=== PATIENT | female | born 1980 | race Caucasian/White ===

== ENCOUNTER 2021-01-31 22:40 | Emergency (ER) | payer OTHER, SELFPAY ==
--- NOTE | ~2021-01-31 | XR_ITS ---
EXAMINATION: XR knee LT min 4V EXAM DATE: 01/31/2021 23:40 INDICATION: No known recent injury provided at this time. Pain of the left knee. TECHNIQUE: Left knee frontal, crosstable lateral, orthogonal oblique projections for interpretation. Comparison is made to prior examination from 01/15/2017. FINDINGS: No evidence osteochondral defect or joint body in the left knee joint. No sizable joint ef fusion. There is minimal tricompartmental primary osteoarthritis. There are no acute fractures or dis locations identified. There is no subcutaneous gas. The soft tissue is unremarkable. There are no radiopaque foreign bodies. IMPRESSION: Minimal left knee osteoarthritis. No acute findings. Reviewed, dictated and finalized at location G.
[2021-01-31 23:06] VITALS: BP 144/88; PULSE 97; RESP 20; TEMP 36.6; O2SAT 97
[2021-01-31 23:22] VITALS: BP 125/66; PULSE 82; RESP 17; TEMP 36.8; O2SAT 98
--- NOTE | 2021-02-01 00:11 | ED.LOWEXIN ---
HPI - Extremity Injury (Lower) General Chief Complaint: Extremity Injury, Lower Stated Complaint: left knee pain Time Seen by Provider: 01/31/21 23:28 Source: patient Mode of arrival: ambulatory Limitations: no limitations History of Present Illness HPI Narrative: 40-year-old female complaining of left knee pain. Patient states no injury she did fall onto the concrete a couple of weeks ago but did not have knee pain since then. Suddenly today while she was visiting she developed left knee pain and increased pain with flexion. No previous history of same. States she feels as if the knee is unstable although she is able to bear weight on the knee. This happened earlier today with increasing pain throughout the day. Tylenol without relief. No previous knee surgeries, no previous injury to this knee. No other injury. No LOC. Pain radiates from left anterior medial knee to the posterior popliteal region. No swelling, no erythema, no fever. Related Data Home Medications Medication Instructions Recorded Confirmed bupropion HCl [Wellbutrin XL] 300 mg PO QAM 05/04/19 05/20/19 escitalopram oxalate [Lexapro] 20 mg PO DAILY 05/04/19 05/20/19 lisinopril-hydrochlorothiazide 1 tablet PO DAILY 05/04/19 05/20/19 omeprazole 20 mg PO DAILY 05/20/19 05/20/19 ropinirole 0.5 mg PO BID 05/20/19 05/20/19 Allergies Allergy/AdvReac Type Severity Reaction Status Date / Time Sulfa (Sulfonamide Allergy Unknown Hives Verified 01/31/21 23:30 Antibiotics) Review of Systems Review of Systems: CONSTITUTIONAL: no fever, no weight loss, no confusion EYES: no vision changes, no eye pain ENT: no rhinorrhea, no sore throat, no difficulty swallowing CARDIOVASCULAR: no chest pain, no leg edema, no palpitations RESPIRATORY: no cough, no shortness of breath, no hemoptysis GASTROINTESTINAL: no abdominal pain, no nausea, no vomiting, no diarrhea GENITOURINARY: no flank pain, no dysuria, no hematuria SKIN: no rash, no jaundice MUSCULOSKELETAL: no back pain, no trauma, L knee painand decreased flexion NEUROLOGIC: No headache, no dizziness, no focal weakness PSYCHIATRIC: No hallucinations, no suicidal ideation PMFSH Past Medical History Medical History Anxiety Depression Fibroid Hypertension Surgical History Surgical History History of tubal ligation Family History Family History Other Diabetes mellitus Family history of mental disorder Hypertension Social History Social History Smoking status: Heavy tobacco smoker Alcohol intake: current Exam Narrative: General: alert, afebrile, answering all questions appropriately Head: normocephalic, atraumatic Eyes: EOMI bilaterally, anicteric, no injection ENT: moist mucous membranes, oropharynx patent, no rhinorrhea Neck: supple, trachea midline, no JVD Chest: equal chest rise bilaterally, no chest wall trauma noted EXT: L knee: skin intact, tender to palpation L medial knee, L popliteal; no joint effusion, no erythema, no swelling, valgus, varus negative, negative anterior drawer; popliteal 2+ Skin: warm, dry, no pallor Neuro: alert, oriented x 3; CN 2-12 grossly intact, no dysarthria Psych: affect appropriate, though content normal Course Course Emergency Course: Left knee x-ray with osteoarthritis, no foreign bodies, no joint swelling no dislocation no patellar fracture. Discussed findings with patient. Will use knee immobilizer for comfort, ice and elevate, NSAIDs as needed for pain. Patient will follow up with primary provider if no improvement for possible specialist referral. All questions answered patient agrees with plan. Vital Signs Vital signs: Vital Signs Temperature 36.6 C 01/31/21 23:06 Pulse Rate 97 01/31/21 23:06 Respiratory Rate 20 01/31/21 23:06 Blood Pressure 144/88 H 01/31/21 23:06 Pu
[2021-02-01] MEDS: HYDROcodone/acetaminophen (*CRX) 5-325 MG TABLET 1 TAB PO (00:42)
[2021-02-01] MEDS: KETOROLAC 30 MG/ML VIAL (*BKC) IM (00:43)
== END 2021-02-01 00:50 | disposition home or self-care (01) ==
PROVIDERS: Emergency Provider Emergency Medicine
DX: S83.92XA Sprain of unspecified site of left knee, initial encounter (principal); I10 Essential (primary) hypertension; F41.9 Anxiety disorder, unspecified; F32.A Depression, unspecified; M17.12 Unilateral primary osteoarthritis, left knee; X58.XXXA Exposure to other specified factors, initial encounter
CPT/HCPCS: 73564; 96372; 99283; A9270; J1885

== ENCOUNTER 2021-08-22 13:15 | Emergency (ER) | payer OTHER, SELFPAY ==
--- NOTE | ~2021-08-22 | CT_ITS ---
EXAMINATION: CT abdomen pelvis w con DATE: 08/22/2021 16:52 INDICATION: Severe abdominal pain for one day TECHNIQUE: Computed tomography (CT) of the abdomen and pelvis was performed with 100 CC Omnipaque 350 intravenous contrast. Automated exposure control and iterative reconstruction technique were employe d. Exam dose: 1393.07 mGy-cm total exam DLP. COMPARISON: None. FINDINGS: The lung bases are clear. Normal heart size. No pericardial or pleural effusion. The gallbladder is contracted. The liver, spleen, pancreas and bile ducts and pancreatic duct appear normal. Normal morphology of the adrenal glands. No renal mass lesion, urinary tract calculus or hydroureteronephrosis. There is diffuse thickening of the urinary bladder which may be in part due to the evacuated state versus cystitis. Status post hys terectomy. Normal caliber of the abdominal aorta. No intraperitoneal or retroperitoneal or pelvic mass lesion or adenopathy or ascites. Small sliding hiatal hernia. Normal appendix. No bowel obstruction, bowel wall thickening, pneumatosis or intraperitoneal free air . Included skeletal structures are unremarkable. IMPRESSION: Diffuse urinary bladder wall thickening; consider cystitis Small sliding hiatal hernia Normal appendix Status post hysterectomy Reviewed, dictated and finalized at [facility]. Reviewed, dictated and finalized at location [facility].
[2021-08-22 13:16] VITALS: BP 142/77; PULSE 98; RESP 18; TEMP 36.8; O2SAT 100
[2021-08-22 13:54] LABS: Basophils Absolute Auto 0.1 K/mm3 (0.0-0.1); Basophils Percent Auto 0.6 % (0.2-1.2); Eosinophils Absolute Auto 0.2 K/mm3 (0-0.3); Hematocrit 41.5 % (37.0-47.0); Hemoglobin 13.5 g/dL (12.0-15.0); Immature Granulocyte Absolute 0.02 K/mm3 (0.00-0.031); Immature Granulocyte Percent A 0.2 % (0-0.5); Lymphocytes Absolute Auto 2.88 K/mm3 (0.9-3.2); Mean Corpuscular HGB Conc 32.5 g/dl (32-36); Mean Corpuscular Hemoglobin 29.3 pg (26-34); Mean Corpuscular Volume 90.2 fl (80-100); Mean Platelet Volume 9.6 fl (7.4-10.4); Monocytes Absolute Auto 0.5 K/mm3 (0.1-0.6); Monocytes Percent Auto 5.6 % (2.6-8.5); Neutrophils Absolute Auto 5.4 K/mm3 (1.3-6.7); Neutrophils Percent Auto 59.6 % (45.5-73.1); Platelet Count Result 290 k/mm3 (150-375); Red Cell Distribution Width 12.8 % (11.5-14.5)
[2021-08-22 13:57] LABS: Add Urine Microscopic? NO; Appearance Urine Clear (Clear); Bilirubin Urine Negative (Negative); Blood Urine Negative (Negative); Color Urine Colorless (Yellow); Glucose Urine UA Negative (Negative); Ketones Urine Negative (Negative); Leukocyte Esterase Ur Negative LEU/UL (Negative); Nitrate Urine Negative (Negative); Protein Urine Negative (Negative); Urobilinogen Urine Negative mg/dL (<2.0)
[2021-08-22 14:00] LABS: Specific Grav Ur 1.002 (1.001-1.035)
[2021-08-22 14:02] LABS: Alanine Aminotransferase 14 U/L (4-35); Albumin Level 4.1 g/dL (3.5-5.1); Alkaline Phosphatase 59 U/L (38-126); Anion Gap 7 mmol/L (8-16); Aspartate Amino Transferase 22 U/L (14-36); Bilirubin,Total < 0.1 mg/dL (0.2-1.3); Blood Urea Nitrogen 8 mg/dL (7-17); Calcium 8.6 mg/dL (8.4-10.2); Carbon Dioxide 26 mmol/L (22-30); Chloride 102 mmol/L (98-107); Estimated CRCL calculation 113 ml/min; Estimated Glomerular Filt Rate > 60; Glucose 108 mg/dL (65-110); Lipase 112 U/L (23-300); Potassium 4.1 mmol/L (3.4-5.0); Sodium 135 mmol/L (137-145)
--- NOTE | 2021-08-22 16:02 | ED.ABDPAIN ---
HPI - Abdominal Pain General Chief Complaint: Abdominal Pain Stated Complaint: abdominal pain Time Seen by Provider: 08/22/21 16:01 Source: patient Mode of arrival: ambulatory Limitations: no limitations History of Present Illness HPI narrative: Patient is a 41-year-old female complaining abdominal pain, lower abdomen, 9 out of 10, sharp, nonradiating started today. Patient denies any chest pain, shortness of breath, nausea, vomiting, diarrhea, urinary symptoms, fever or chills. Related Data Home Medications Medication Instructions Recorded Confirmed bupropion HCl [Wellbutrin XL] 300 mg PO QAM 05/04/19 05/20/19 escitalopram oxalate [Lexapro] 20 mg PO DAILY 05/04/19 05/20/19 lisinopril-hydrochlorothiazide 1 tablet PO DAILY 05/04/19 05/20/19 omeprazole 20 mg PO DAILY 05/20/19 05/20/19 ropinirole 0.5 mg PO BID 05/20/19 05/20/19 Allergies Allergy/AdvReac Type Severity Reaction Status Date / Time Sulfa (Sulfonamide Allergy Unknown Hives Verified 08/22/21 16:06 Antibiotics) Review of Systems Review of Systems: All systems reviewed & are unremarkable except as noted in HPI and below Constitutional: Constitutional: Denies body ache(s), Denies chills, Denies excessive sweating, Denies fatigue, Denies fever(s), Denies headache(s), Denies lethargy, Denies malaise, Denies weakness and Denies weight loss Eyes: Eyes: Denies blurry vision, Denies change in vision and Denies loss of vision ENT: Denies dizziness, Denies ear discharge, Denies headache(s), Denies lip swelling, Denies epistaxis, Denies nasal congestion, Denies neck pain, Denies throat swelling and Denies tongue swelling Cardiovascular: Cardiovascular: Denies chest pain, Denies chest pain at rest, Denies chest pain with activity, Denies diaphoresis, Denies rapid heart rate, Denies edema, Denies irregular heart rhythm, Denies lightheadedness, Denies palpitations, Denies dyspnea and Denies dyspnea on exertion Respiratory: Respiratory: Denies chest congestion, Denies cough, Denies hemoptysis, Denies dyspnea and Denies dyspnea on exertion Gastrointestinal: Gastrointestinal: Denies melena, Denies hematochezia, Denies diarrhea, Denies nausea, Denies vomiting and Denies hematemesis Musculoskeletal: Musculoskeletal: Denies abnormal gait, Denies deformity, Denies joint swelling, Denies limited range of motion, Denies neck pain and Denies numbness Neurologic: Denies Abnormal speech present, Denies abnormal gait, Denies confusion, Denies dizziness, Denies headache(s), Denies focal weakness, Denies loss of vision, Denies numbness, Denies Other visual disturbances, Denies Sensory deficit (Neuro) and Denies weakness Psychiatric: Psychiatric: Denies confusion, Denies depression, Denies auditory hallucinations, Denies homicidal ideation and Denies suicidal ideation Endocrine: Endocrine: Denies cold intolerance, Denies excessive sweating, Denies fatigue, Denies heat intolerance and Denies palpitations Hematologic/Lymphatic: Hematologic/Lymphatic: Denies easy bleeding and Denies easy bruising Allergic/Immunologic: Allergic/Immunologic: Denies lip swelling, Denies throat swelling and Denies tongue swelling PMFSH Past Medical History Medical History Anxiety Depression Fibroid Hypertension Surgical History Surgical History History of tubal ligation Family History Family History Other Diabetes mellitus Family history of mental disorder Hypertension Social History Social History Smoking status: Heavy tobacco smoker Alcohol intake: current Exam Const: General: cooperative, healthy appearing, comfortable, no acute distress, well developed, alert and awake; No confusion Orientation/consciousness: oriented to person, oriented to place, oriented to artemio
[2021-08-22 16:05] VITALS: BP 134/85; PULSE 87; RESP 15; O2SAT 98
[2021-08-22 18:18] VITALS: BP 125/91; PULSE 98; RESP 18; O2SAT 99
== END 2021-08-22 18:17 | disposition home or self-care (01) ==
PROVIDERS: Emergency Medicine; Emergency Provider Emergency Medicine; PCP Family Medicine Sports Medicine
DX: R10.30 Lower abdominal pain, unspecified (principal); F32.A Depression, unspecified; I10 Essential (primary) hypertension; F17.210 Nicotine dependence, cigarettes, uncomplicated; Z98.51 Tubal ligation status
CPT/HCPCS: 36415; 74177; 80053; 81003; 81025; 83690; 85025; 99284; Q9967

== ENCOUNTER 2022-02-03 18:21 | Emergency (ER) | payer OTHER, SELFPAY ==
[2022-02-03 18:27] VITALS: BP 150/97; PULSE 106; RESP 16; TEMP 37; O2SAT 99
--- NOTE | 2022-02-03 18:28 | ED.URI ---
HPI - URI/Sore Throat General Chief Complaint: Upper Respiratory Infection Stated Complaint: sore throat Time Seen by Provider: 02/03/22 18:35 History of Present Illness HPI Narrative: 41 y/o female presented for c/o left sided throat pain and ear pain for about 3 weeks. Pain worse with swallowing. States about 3 weeks ago she was treated with Augmentin for Right ear pain via telehealth visit with her doctor. Unsure if she had a sore throat at that time. Denies trouble swallowing secretions, sob, wheezing, fever or chills. Related Data Home Medications Medication Instructions Recorded Confirmed bupropion HCl 300 mg 24 hr tablet, 300 mg PO QAM 05/04/19 05/20/19 extended release (Wellbutrin XL) escitalopram oxalate 20 mg tablet 20 mg PO DAILY 05/04/19 05/20/19 (Lexapro) lisinopril 10 1 tablet PO DAILY 05/04/19 05/20/19 mg-hydrochlorothiazide 12.5 mg tablet omeprazole 20 mg capsule,delayed 20 mg PO DAILY 05/20/19 05/20/19 release ropinirole 0.5 mg tablet 0.5 mg PO BID 05/20/19 05/20/19 aripiprazole 5 mg tablet mg 02/03/22 oxybutynin chloride 5 mg tablet mg 02/03/22 Allergies Allergy/AdvReac Type Severity Reaction Status Date / Time Sulfa (Sulfonamide Allergy Unknown Hives Verified 02/03/22 18:29 Antibiotics) Review of Systems Review of Systems: CONSTITUTIONAL: Denies body aches, fever, chills, or sweats. EYES: Denies visual changes, redness, or discharge. ENT: Denies rhinorrhea, congestion, or otalgia. CARDIOVASCULAR: Denies chest pain, palpitations, or edema. RESPIRATORY: Denies dyspnea. GASTROINTESTINAL: Denies abdominal pain, nausea, vomiting, or diarrhea. SKIN: Denies rash, itching, or wounds. MUSCULOSKELETAL: Denies back pain, joint pain, or myalgia. NEUROLOGIC: Denies headache PMFSH Past Medical History Medical History Anxiety Depression Fibroid Hypertension Surgical History Surgical History History of tubal ligation Family History Family History Other Diabetes mellitus Family history of mental disorder Hypertension Social History Social History Smoking status: Heavy tobacco smoker Alcohol intake: current Exam Narrative: GENERAL:well-appearing EYES: conjunctivae clear ENT: Mucous membranes moist. TMs pearly bello with normal light reflex bilaterally; no tragal tenderness. Hoarse voice, Oropharynx erythematous without lesions. Tonsils absent. No drooling, no hoarseness, no trismus, uvula midline. No tripod positioning, hot potato voice, or soft palate swelling. NECK: Supple. No lymphadenopathy CHEST: Clear to auscultation, breath sounds equal. No respiratory distress, speaks in full sentences. HEART: Regular rate and rhythm. No murmur heard. SKIN: Warm, dry, no rash. NEURO: Alert and oriented x3. Course Course Emergency Course: Patient is aware of diagnosis, understands and agrees to treatment plan. Anticipatory guidance given. Patient agrees to follow-up as directed and is aware of reasons to seek care at the emergency department. Portions of this record may have been created with voice recognition software Level of Care: Express Care Visit Vital Signs Vital signs: Vital Signs Temperature 98.6 F 02/03/22 18:27 Pulse Rate 106 H 02/03/22 18:27 Respiratory Rate 16 02/03/22 18:27 Blood Pressure 150/97 H 02/03/22 18:27 Pulse Oximetry 99 02/03/22 18:27 Oxygen Delivery Room Air 02/03/22 18:27 Temperature 98.6 F 02/03/22 18:27 Pulse Rate 106 H 02/03/22 18:27 Respiratory Rate 16 02/03/22 18:27 Blood Pressure 150/97 H 02/03/22 18:27 Pulse Oximetry 99 02/03/22 18:27 Oxygen Delivery Room Air 02/03/22 18:27 MDM - URI/Sore Throat MDM Narrative Medical decision making narrative: Lawanda
[2022-02-03] MEDS: predniSONE 20 MG TABLET 60 MG PO (18:50)
== END 2022-02-03 19:00 | disposition home or self-care (01) ==
PROVIDERS: Emergency Provider Nurse Practitioner Family; PCP Family Medicine Sports Medicine
DX: J02.9 Acute pharyngitis, unspecified (principal); F17.200 Nicotine dependence, unspecified, uncomplicated; I10 Essential (primary) hypertension; F41.9 Anxiety disorder, unspecified; F32.A Depression, unspecified
CPT/HCPCS: 99213; G0463; J7512

== ENCOUNTER 2024-07-09 14:29 | Outpatient (CLI) | payer OTHER, SELFPAY ==
--- NOTE | ~2024-07-09 | XR_ITS ---
Left Hand Technique: PA and lateral views were obtained. Clinical History: Rheumatoid nodule Findings: No acute fracture or dislocation is seen. Osseous alignment is anatomic. Joint spaces are p reserved. Soft tissues are unremarkable. Impression: Unremarkable left hand. Reviewed, dictated and finalized at location M. Impression: Unremarkable left hand.
--- NOTE | ~2024-07-09 | XR_ITS ---
Right foot Technique: AP and lateral views were obtained. Clinical History: Rheumatoid nodule Findings: No acute fracture or dislocation is seen. Osseous alignment is anatomic. Joint spaces are p reserved without erosive or degenerative change. Soft tissues are unremarkable. Impression: Unremarkable right foot radiographs. Reviewed, dictated and finalized at location . Impression: Unremarkable right foot radiographs.
--- NOTE | ~2024-07-09 | XR_ITS ---
Right Hand Technique: PA and lateral views were obtained. Clinical History: Rheumatoid nodule Findings: No acute fracture or dislocation is seen. Osseous alignment is anatomic. Joint spaces are p reserved. Soft tissues are unremarkable. Impression: Unremarkable right hand. Reviewed, dictated and finalized at location M. Impression: Unremarkable right hand.
--- NOTE | ~2024-07-09 | XR_ITS ---
Left foot Technique: AP and lateral views were obtained. Clinical History: Rheumatoid nodule Findings: No acute fracture or dislocation is seen. Osseous alignment is anatomic. Joint spaces are p reserved without erosive or degenerative change. Soft tissues are unremarkable. Impression: Unremarkable left foot radiographs. Reviewed, dictated and finalized at location . Impression: Unremarkable left foot radiographs.
== END 2024-07-09 14:30 | disposition home or self-care (01) ==
PROVIDERS: PCP Internal Medicine; Visit Provider Internal Medicine
DX: M06.30 Rheumatoid nodule, unspecified site (principal)
CPT/HCPCS: 73120; 73620

== ENCOUNTER 2024-07-16 08:09 | Outpatient (NON) | payer OTHER, SELFPAY ==
--- OUTSIDE RECORDS SUMMARY | 2024-07-17 08:20 | XMS_ITS | Clinical Summary ---
Author Organization [facility] Address [facility] [place] [address] Care Team Providers Care Professor Of Biology Name Role Phone Marino Bynre MD Primary Care Provider [phone] Allergies Active Allergy Reactions Criticality Noted Date Comments Sulfa Antibiotics Hives 08/04/2023 Medications buPROPion XL (WELLBUTRIN XL) 300 MG 24 hr tablet Take 1 tablet (300 mg total) by mouth daily. Active escitalopram (LEXAPRO) 20 MG tablet Take 1 tablet (20 mg total) by mouth daily. Active omeprazole (PRILOSEC) 40 MG capsule Take 1 capsule (40 mg total) by mouth daily. Active lisinopril-hydroCH LOROthiazide (ZESTORETIC) 10-12.5 MG tablet Take 1 tablet by mouth daily. Active ROPINIROLE HYDROCHLORIDE 3 MG Tab Take 1 tablet by mouth 3 (three) times daily. Active oxybutynin (DITROPAN) 5 MG tablet Take 1 tablet (5 mg total) by mouth 3 (three) times daily. Active dicyclomine (BENTYL) 20 MG tablet Take 1 tablet (20 mg total) by mouth every 6 (six) hours as needed (abdominal pain/crampin g). 20 tablet 4 Active Social History Tobacco Use Types Packs/Day Years Used Date Smoking Tobacco: Never Smokeless Tobacco: Never Tobacco Cessation:Counseling Given: No Comments No Sex and Gender Information Value Date Recorded Sex Assigned at Not on file Legal Sex Female 4:50 PM CDT Gender Identity Not on file Sexual Orientation Not on file Last Filed Vital Signs Vital Sign Reading Time Taken Comments Blood Pressure 140/83 08/04/2023 10:40 AM CDT Pulse 67 08/04/2023 10:40 AM CDT Temperature 36.2 C (97.1 F) 08/04/2023 10:40 AM CDT Respiratory Rate 18 08/04/2023 10:40 AM CDT Oxygen Saturation 98% 08/04/2023 10:40 AM CDT Inhaled Oxygen Concentration - - Weight 122.5 kg (270 lb) 08/04/2023 9:37 AM CDT Height 175.3 cm (5' 9 ) 08/04/2023 9:37 AM CDT Body Mass Index 39.87 08/04/2023 9:37 AM CDT Plan of Treatment Health Maintenance Due Date Last Done Comments Annual Physical 08/17/1982 Hepatitis C 08/17/1997 DTaP, Tdap and Td Vaccines ( 1 - Tdap) 08/17/1998 Hepatitis B Vaccines (1 of 3 - 19+ 3-dose series) 08/17/1998 Mammogram Screening 2019 COVID-19 Vaccine (4 - 2023-2 5 season) 2023 02/22/2021, 07/16/2020, 06/24/2020 Influenza Adult (#1) 2024 01/11/2022, 01/17/2020 HPV Vaccines Aged Out No longer eligi ble based on patient's age to complete this topic Meningococcal B Vaccine Aged Out No l onger eligible based on patient's age to complete this topic Meningococcal Vaccine Aged Out No dean flex eligible based on patient's age to complete this topic Pneumococcal Vaccine: Pediatrics (0 to 5 Years) and At-Risk Patients (6 to 64 Years) Aged Out No longer eligible b ased on patient's age to complete this topic RSV Immunizations Under 20 Months Aged Out No longer eligible b ased on patient's age to complete this topic Insurance [facility] Care Teams Professor Of Biology Relationship Specialty Start Date End Date Marino Byrne MD [address] [place] [address] PCP - General FAMILY PRACTICE 08/04/23
== END 2024-07-16 08:10 | disposition home or self-care (01) ==
LOC: ANHLAB 07-17 08:11
PROVIDERS: PCP Internal Medicine; Visit Provider Plastic Surgery
DX: R22.32 Localized swelling, mass and lump, left upper limb (principal)
CPT/HCPCS: 88304

== ENCOUNTER 2024-07-30 10:12 | Outpatient (NON) | payer OTHER, SELFPAY ==
--- OUTSIDE RECORDS SUMMARY | 2024-07-31 10:36 | XMS_ITS | Clinical Summary ---
Author Organization [facility] Address [facility] [place] [address] Care Team Providers Care Academic Services Professional Name Role Phone Marino Byrne MD Primary Care Provider [phone] Allergies Active Allergy Reactions Criticality Noted Date [...] patient's age to complete this topic Insurance [facility] Care Teams Academic Services Professional Relationship Specialty Start Date End Date Marino Byrne MD [address] [place] [address] PCP - General FAMILY PRACTICE 08/04/23
== END 2024-07-30 10:13 | disposition home or self-care (01) ==
LOC: ANHLAB 07-31 10:13
PROVIDERS: PCP Internal Medicine; Visit Provider Plastic Surgery
DX: M67.441 Ganglion, right hand (principal); M15.1 Heberden's nodes (with arthropathy)
CPT/HCPCS: 88304; 88342

== ENCOUNTER 2024-08-31 10:10 | Outpatient (CLI) | payer OTHER, SELFPAY ==
--- NOTE | ~2024-08-31 | XR_ITS ---
EXAMINATION: XR chest 2V 08/31/2024 10:35 INDICATION: Nicotine dependence PROCEDURE: 2 view chest COMPARISON: 01/02/2004 FINDINGS: The lungs are clear. The cardiomediastinal silhouette is within normal limits. There are no pleural effusions. There is no pneumothorax suspected. IMPRESSION: 1: NO ACUTE CARDIOPULMONARY DISEASE. Reviewed, dictated and finalized at location A.
== END 2024-08-31 10:11 | disposition home or self-care (01) ==
LOC: MICIMG 10:12
PROVIDERS: PCP Family Medicine; Visit Provider Internal Medicine
DX: F17.210 Nicotine dependence, cigarettes, uncomplicated (principal)
CPT/HCPCS: 71046

== ENCOUNTER 2024-09-05 09:14 | Outpatient (CLI) | payer OTHER, SELFPAY ==
--- NOTE | ~2024-09-05 | MR_ITS ---
MRI of the left hand CLINICAL HISTORY: Rheumatoid nodules at the PIP joints TECHNIQUE: T1-weighted and T2 fat-sat imaging was performed in the axial, coronal, and sagittal plane s. FINDINGS: Bone marrow signals are unremarkable. No marrow edema or fracture. No evidence for ostial m yelitis. Joint spaces appear preserved throughout the hand. No degenerative or erosive change identif ied. No joint effusion. Flexor and extensor tendons are intact. There is a small nonspecific intermediate signal soft tissue thickening or mass at the dorsal aspect of the third PIP joint (series 3 image 24). No other soft tis anil mass or fluid collection seen. Intramuscular tear of the hand is unremarkable. IMPRESSION: Small nonspecific mass or soft tissue thickening of intermediate signal at the dorsal aspect of the t hird PIP joint, superficial to the extensor tendon. Correlate clinically and with physical exam. Reviewed, dictated and finalized at [facility]. IMPRESSION: Small nonspecific mass or soft tissue thickening of intermediate signal at the dorsal aspect of the third PIP joint, superficial to the extensor tendon. Corre late clinically and with physical exam.
--- NOTE | ~2024-09-05 | MR_ITS ---
MRI of the right hand CLINICAL HISTORY: Rheumatoid nodules at the PIP joints TECHNIQUE: Axial T1-weighted and T2 fat-sat images, coronal T1-weighted and T2 fat-sat images, and sa gittal T1-weighted and T2 fat-sat images were acquired. FINDINGS: Bone marrow signals are unremarkable. No fracture or bone marrow edema seen. No erosive delbert nge identified. There is probable joint space narrowing diffusely involving the MCP joints, without s ignificant joint effusion. Flexor and extensor tendons are intact. Intrinsic musculature of the hand is intact. Collateral ligam ents appear intact. There is a focal area of soft tissue thickening, intermediate signal intensity al juan antonio the dorsal aspect of the fourth PIP joint (series 5 image 22).. IMPRESSION: Suggestion of diffuse joint space narrowing of the MCP joints without distinct erosive change or join t effusion. Correlate clinically for rheumatoid arthritis. Small nonspecific area of soft tissue thickening or mass of intermediate signal intensity at the dors al aspect of the fourth PIP joint, superficial to the tendon. Reviewed, dictated and finalized at location . IMPRESSION: Suggestion of diffuse joint space narrowing of the MCP joints without distinct erosive change or joint effusion. Correlate clinically for rheumatoid arthritis . Small nonspecific area of soft tissue thickening or mass of intermediate signal intensity at the dorsal aspect of the fourth PIP joint, superficial to the ten don.
== END 2024-09-05 09:15 | disposition home or self-care (01) ==
LOC: MICIMG 09:14
PROVIDERS: PCP Family Medicine; Visit Provider Internal Medicine
DX: M79.89 Other specified soft tissue disorders (principal)
CPT/HCPCS: 73218